=== PATIENT | male | born 1940 | race Asian ===

== ENCOUNTER 2020-04-10 04:20 | Day surgery (SDC) | payer BC, OTHER | END 2020-04-10 10:40 | disposition home or self-care (01) | LOC: JASU-ENDO 04:20 | PROC: 0DB48ZX Excision of Esophagogastric Junction, Via Natural or Artificial Opening Endoscopic, Diagnostic (ICD-10-PCS; 2020-04-10) | PROC: 0DB68ZX Excision of Stomach, Via Natural or Artificial Opening Endoscopic, Diagnostic (ICD-10-PCS; 2020-04-10) | PROC: 0DB28ZX Excision of Middle Esophagus, Via Natural or Artificial Opening Endoscopic, Diagnostic (ICD-10-PCS; 2020-04-10) | PROC: 0DB38ZX Excision of Lower Esophagus, Via Natural or Artificial Opening Endoscopic, Diagnostic (ICD-10-PCS; 2020-04-10) | PROC: 0DBL8ZX Excision of Transverse Colon, Via Natural or Artificial Opening Endoscopic, Diagnostic (ICD-10-PCS; principal; 2020-04-10 08:00) | CPT/HCPCS: 88305-TC; 88313-TC; 88342-TC ==